=== PATIENT | female | born 1955 | race Asian ===

== ENCOUNTER 2019-04-12 19:52 | Emergency (ER) | payer MEDICAID ==
[~2019-04-12] VITALS: Ht 157.5 cm; Wt 73.9 kg
[2019-04-12 19:59] VITALS: BP_SYST 145
--- NOTE | 2019-04-12 20:15 | NUR ---
Pt BIB BLS r/t dog bite to the right calf today. Pt states that she was attacked by a black dog, then it ran away. ~[id number] puncture wounds to right upper calf with redness and swellling to sites. No bleeding noted. Pt c/o pain with ambulation and palpation to site.
--- NOTE | 2019-04-12 20:15 | NUR ---
Patient to [facility] for evaluation. Side rails up. Report given to SARAH PEDRO.
--- NOTE | 2019-04-12 22:14 | NUR ---
ER at bedside examining patient.
[2019-04-12] MEDS ORDERED: BACITRACIN 1 GM OINT TP ONE (22:30)
[2019-04-12] MEDS ORDERED: AMOXICILLIN/CLAVULANATE POTASSIUM 875 MG TABLET PO ONE (22:30)
[2019-04-12] MEDS ORDERED: DIPH-TET-PERTUS Vaccine 0.5 ML VIAL (ADACEL) IM ONE (22:30)
[2019-04-12 23:02] VITALS: BP_SYST 134
--- NOTE | 2019-04-12 23:02 | NUR ---
Patient given written and verbal discharge instructions and verbalizes understanding. ER MD discussed with patient the results and treatment provided. Patient in stable condition. ID arm band removed. Rx of Augmentin given. Patient educated on pain management and to follow up with PMD. Pain Scale 2/10. Opportunity for questions provided and answered. Medication side effect fact sheet provided.
== END 2019-04-12 23:02 | disposition home or self-care (01) ==
LOC: SED 19:52
DX: S81.851A Open bite, right lower leg, initial encounter (principal); W54.0XXA Bitten by dog, initial encounter; Y93.89 Activity, other specified; Y92.89 Other specified places as the place of occurrence of the external cause; Y99.8 Other external cause status
CPT/HCPCS: 90715; 99283